=== PATIENT | male | born 1960 | race Caucasian/White ===

== ENCOUNTER 2017-12-12 04:12 | Emergency (ER) | payer SELFPAY ==
[2017-12-12] MEDS ORDERED: LISI20TA29 PO ×2 (04:21→07:13)
--- NOTE | 2017-12-12 04:31 | ER Report ---
History and Physical Time Seen By MD: 04:31 Hx. of Stated Complaint: woke up sob around 2am (HECTOR PAULINO MD) Time Seen By MD: 07:08 (EDITH ARAGON DO) HPI/ROS CHIEF COMPLAINT: shortness of breath HISTORY OF PRESENT ILLNESS: This is a 57 year old male. He is a tow truck operator, from [place]. Woke up tonight with episodes of shortness of breath. Episodes where he will wake up gasping for breath. Then will try to sleep again and the same happens. He has occasional sharp pains in chest, very short. Denies cough or fevers, although has had some congestion recently. Has no nausea or vomiting. Has no problems with bowels or urination. Has a history of CAD with multiple stents. No history of PE or DVT. No lung problems in the past. (HECTOR PAULINO MD) Allergies: Coded Allergies: No Known Drug Allergies (Unverified , 12/12/17) Home Meds Active Scripts Lisinopril (LISINOPRIL) 20 Mg Tablet, 20 MG PO QDAY for 7 Days, #7 TAB Prov:EDITH ARAGON DO 12/12/17 Reported Medications Lisinopril (LISINOPRIL) 20 Mg Tablet, 20 MG PO QDAY, TAB 12/12/17 Reviewed Nurses Notes: Yes (HECTOR PAULINO MD) Hx Substance Use Disorder: No Hx Alcohol Use: No (HECTOR PAULINO MD) Constitutional Vital Sign - Last 24 Hours 12/12/17 12/12/17 12/12/17 12/12/17 04:12 04:17 04:18 04:27 Temp 98.1 Pulse ??? 93 83 Resp 18 B/P (MAP) 172/100 (124) 172/100 Pulse Ox 93 96 O2 Delivery Room Air 12/12/17 12/12/17 12/12/17 12/12/17 04:42 04:57 05:06 05:12 Pulse 84 ??? 64 Resp 26 B/P (MAP) 165/104 (124) Pulse Ox 92 93 88 12/12/17 12/12/17 12/12/17 12/12/17 05:15 05:20 05:30 05:35 Pulse 77 81 Resp 27 14 B/P (MAP) 166/83 (110) 153/95 (114) Pulse Ox 92 91 12/12/17 12/12/17 12/12/17 12/12/17 05:45 05:50 06:00 06:17 Pulse 80 Resp 31 B/P (MAP) 150/115 (127) 146/100 (115) Pulse Ox 92 O2 Flow Rate 2.0 12/12/17 12/12/17 12/12/17 12/12/17 06:30 06:35 06:45 06:50 Pulse 75 78 Resp 15 24 B/P (MAP) 158/90 (112) 154/95 (114) Pulse Ox 95 94 12/12/17 12/12/17 07:00 07:05 Pulse 80 Resp 20 B/P (MAP) 159/94 (115) Pulse Ox 95 (ARAGON,EDITH S DO) Physical Exam General Appearance: The patient is alert. Has some anxiety and mild distress with symptoms. Eyes: Pupils are equal, round. No pallor, injection or icterus. ENT: Mucous membranes are moist. Normal oral mucosa. Posterior oropharynx is normal. Neck: Supple and non tender. Respiratory: Lungs are clear to auscultation. There are no retractions or accessory muscle use. Cardiovascular: Regular rate and rhythm. No murmurs, gallops or rubs. Normal capillary refill. No edema. Gastrointestinal: Abdomen is soft and non tender. Nondistended. Normal active bowel sounds. Neurological: Alert and oriented x3. Skin: Warm and dry. No rashes. Musculoskeletal: Extremities are nontender. No back pain. DIFFERENTIAL DIAGNOSIS: After history and physical exam, differential diagnosis was considered for shortness of breath including but not limited to pulmonary infectious process, pulmonary embolus and congestive heart failure. ([facility]) Medical Decision Making Data Points Result Diagram: 12/12/17 0454 12/12/17 0454 Laboratory Hematology Test 12/12/17 04:54 12/12/17 04:59 Red Blood Count 4.89 M/uL (4.00-5.60) Mean Corpuscular Volume 91.3 fL (80.0-96.0) Mean Corpuscular Hemoglobin 32.1 pg (26.0-33.0) Mean Corpuscular Hemoglobin Concent 35.1 g/dL (32.0-36.0) Red Cell Distribution Width 13.9 % (11.5-14.5) Mean Platelet Volume 9.6 fL (7.2-11.1) Neutrophils (%) (Auto) 65.5 % (39.4-72.5) Lymphocytes (%) (Auto) 22.3 % (17.6-49.6) Monocytes (%) (Auto) 7.3 % (4.1-12.4) Eosinophils (%) (Auto) 3.6 % (0.4-6.7) Basophils (%) (Auto) 1.3 % (0.3-1.4) Nucleated RBC Relative Count (auto) 0.0 /100WBC Neutrophils # (Auto) 6.8 K/uL (2.0-7.4) Lymphocytes # (Auto) 2.3 K/uL (1.3-3.6) Monocytes # (Auto) 0.8 K/uL (0.3-1.0) Eosinophils # (Auto) 0.4 K/uL (0.0-0.5) Basophils # (Auto) 0.1 K/uL (0.0-0.1) Nucleated RBC Absolute Count (auto) 0.00 K/uL D-Dimer Quantitative (PE/DVT) 0.65 ug/ml (0-0.50) Sodium Level 140 mmol/L (137-145) Potassium Level 4.0 mmol/L (3.5-5.0) Chloride Level 104 mmol/L (98-107) Carbon Dioxide Level 23 mmol/L (22-30) Blood Urea Nitrogen 17 mg/dl (9-21) Creatinine 1.00 mg/dl (0.66-1.25) Glomerular Filtration Rate Calc > 60.0 Random Glucose 119 mg/dl (75-110) Calcium Level 8.8 mg/dl (8.4-10.2) Total Bilirubin 0.4 mg/dl (0.2-1.3) Aspartate Amino Transf (AST/SGOT) 23 U/L (0-35) Alanine Aminotransferase (ALT/SGPT) 24 U/L (0-56) Alkaline Phosphatase 79 U/L (0-126) Troponin I < 0.012 ng/ml B-Type Natriuretic Peptide 183 pg/ml (0-100) Total Protein 7.5 g/dl (6.3-8.2) Albumin 4.0 g/dl (3.5-5.0) Urine Color Colorless Urine Clarity Clear Urine pH 5.0 pH (4.8-9.5) Urine Specific Adrian 1.003 Urine Protein Negative mg/dL (NEGATIVE) Urine Glucose (UA) Negative mg/dL (NEGATIVE) Urine Ketones Negative mg/dL (NEGATIVE) Urine Blood Small (NEGATIVE) Urine Nitrite Negative (NEGATIVE) Urine Bilirubin Negative (NEGATIVE) Urine Urobilinogen Negative mg/dL (0.2-1.9) Urine Leukocyte Esterase Negative (NEGATIVE) Urine RBC None /HPF (0-2/HPF) Urine WBC <1 /HPF (0-5/HPF) Urine Squamous Epithelial Cells None /LPF (</=FEW) Urine Bacteria Few /HPF (NONE-FEW) Urine Mucus None /HPF (NONE-FEW) Chemistry Test 12/12/17 04:54 12/12/17 04:59 White Blood Count 10.4 k/uL (4.5-11.0) Red Blood Count 4.89 M/uL (4.00-5.60) Hemoglobin 15.7 g/dL (14.0-18.0) Hematocrit 44.7 % (42.0-52.0) Mean Corpuscular Volume 91.3 fL (80.0-96.0) Mean Corpuscular Hemoglobin 32.1 pg (26.0-33.0) Mean Corpuscular Hemoglobin Concent 35.1 g/dL (32.0-36.0) Red Cell Distribution Width 13.9 % (11.5-14.5) Platelet Count 177 K/uL (150-450) Mean Platelet Volume 9.6 fL (7.2-11.1) Neutrophils (%) (Auto) 65.5 % (39.4-72.5) Lymphocytes (%) (Auto) 22.3 % (17.6-49.6) Monocytes (%) (Auto) 7.3 % (4.1-12.4) Eosinophils (%) (Auto) 3.6 % (0.4-6.7) Basophils (%) (Auto) 1.3 % (0.3-1.4) Nucleated RBC Relative Count (auto) 0.0 /100WBC Neutrophils # (Auto) 6.8 K/uL (2.0-7.4) Lymphocytes # (Auto) 2.3 K/uL (1.3-3.6) Monocytes # (Auto) 0.8 K/uL (0.3-1.0) Eosinophils # (Auto) 0.4 K/uL (0.0-0.5) Basophils # (Auto) 0.1 K/uL (0.0-0.1) Nucleated RBC Absolute Count (auto) 0.00 K/uL D-Dimer Quantitative (PE/DVT) 0.65 ug/ml (0-0.50) Glomerular Filtration Rate Calc > 60.0 Calcium Level 8.8 mg/dl (8.4-10.2) Total Bilirubin 0.4 mg/dl (0.2-1.3) Aspartate Amino Transf (AST/SGOT) 23 U/L (0-35) Alanine Aminotransferase (ALT/SGPT) 24 U/L (0-56) Alkaline Phosphatase 79 U/L (0-126) Troponin I < 0.012 ng/ml B-Type Natriuretic Peptide 183 pg/ml (0-100) Total Protein 7.5 g/dl (6.3-8.2) Albumin 4.0 g/dl (3.5-5.0) Urine Color Colorless Urine Clarity Clear Urine pH 5.0 pH (4.8-9.5) Urine Specific Adrian 1.003 Urine Protein Negative mg/dL (NEGATIVE) Urine Glucose (UA) Negative mg/dL (NEGATIVE) Urine Ketones Negative mg/dL (NEGATIVE) Urine Blood Small (NEGATIVE) Urine Nitrite Negative (NEGATIVE) Urine Bilirubin Negative (NEGATIVE) Urine Urobilinogen Negative mg/dL (0.2-1.9) Urine Leukocyte Esterase Negative (NEGATIVE) Urine RBC None /HPF (0-2/HPF) Urine WBC <1 /HPF (0-5/HPF) Urine Squamous Epithelial Cells None /LPF (</=FEW) Urine Bacteria Few /HPF (NONE-FEW) Urine Mucus None /HPF (NONE-FEW) Coagulation Test 12/12/17 04:54 D-Dimer Quantitative (PE/DVT) 0.65 ug/ml Urinalysis Test 12/12/17 04:59 Urine Color Colorless Urine Clarity Clear Urine pH 5.0 pH (4.8-9.5) Urine Specific Adrian 1.003 Urine Protein Negative mg/dL (NEGATIVE) Urine Glucose (UA) Negative mg/dL (NEGATIVE) Urine Ketones Negative mg/dL (NEGATIVE) Urine Blood Small (NEGATIVE) Urine Nitrite Negative (NEGATIVE) Urine Bilirubin Negative (NEGATIVE) Urine Urobilinogen Negative mg/dL (0.2-1.9) Urine Leukocyte Esterase Negative (NEGATIVE) Urine RBC None /HPF (0-2/HPF) Urine WBC <1 /HPF (0-5/HPF) Urine Squamous Epithelial Cells None /LPF (</=FEW) Urine Bacteria Few /HPF (NONE-FEW) Urine Mucus None /HPF (NONE-FEW) (EDITH ARAGON DO) EKG/Imaging EKG Interpretation 12 lead EKG: Rhythm: normal sinus rhythm [place]: normal QRS: Poor R-wave progression ST segments: No ST elevation or depression noted, evidence of some strain pattern Imaging CHEST: Indication: Respiratory distress. Technique: Frontal and lateral views were obtained. Comparison: None. Skeletal and soft tissue structures: There are chronic degenerative changes in the spine. There is a fracture in the lateral aspect of the left seventh rib, of uncertain age. Additional clinical correlation is recommended. Heart and mediastinum: Within normal limits. Lung garcía: Well-expanded. No focal opacities are identified. There is no vascular congestion Pleural spaces: Unremarkable. Impression: No acute process is identified in the lung garcía. There is a fracture of the left seventh rib, of indeterminate age. Report Dictated By: Guillermo Alvarez MD at 12/12/2017 5:13 AM ([facility]) Imaging EXAMINATION: CT chest angiogram HISTORY: Short of breath TECHNIQUE: CT angiogram was obtained through the chest with intravenous contrast. Sagittal and coronal MPR and MIP coronal reformations were generated. 75 mL isovue 370 was injected. One of the following dose optimization techniques was utilized in the performance of this exam: automated exposure control; adjustment of the mA and/ or kV according to patient size; or use of iterative reconstruction technique. Specific details can be referenced in the facility's radiology CT exam operational policy. COMPARISON: None. FINDINGS: Lower neck: Normal. Heart / pericardium/aorta/great vessels: Coronary artery stents and coronary artery calcifications noted. Mediastinum: Normal. Lymph node assessment: Mildly enlarged right hilar lymph nodes measuring up to 1.5 cm, axial image 163. Pleura: Normal. Pulmonary arteries/pulmonary arterial vascular tree: Probable contrast admixture artifact within a left upper lobe subsegmental branch, image 149 axial. Otherwise normal pulmonary arterial vasculature without embolus identified. Lungs: Calcified left lower lobe pulmonary nodule, image 73. Mild emphysema. Upper abdomen: Normal. Chest wall: Normal. 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 IMPRESSION: 1. Poor opacification of a left upper lobe pulmonary arterial subsegmental branch is favored to represent contrast admixture artifact. No definitive pulmonary embolus. 2. No acute finding. 3. Likely reactive mildly enlarged right hilar lymph nodes. 4. Coronary artery calcifications and stents. 5. 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 (EDITH ARAGON DO) ED Course/Re-evaluation Clinical Indication for ER IV: Hydration, IV Access (HECTOR PAULINO MD) ED Course I assumed care of the patient at [address] Paulino. CTA showed no acute PE or infectious etiology. I supplied the patient with a script for Lisinopril QD and he was given a dose prior to discharge. Patient is commuting to [place] which should improve dyspnea if etiology is altitude affected. Patient voiced understanding of plan and was maintaining oxygen saturations prior to discharge. Decision to Disposition Date: Dec 12, 2017 Decision to Disposition Time: 07:14 (EDITH ARAGON DO) Depart Departure Latest Vital Signs Vital Signs Date Time Temp Pulse Resp B/P (MAP) Pulse Ox O2 Delivery O2 Flow Rate FiO2 12/12/17 07:05 80 20 95 12/12/17 07:00 159/94 (115) 12/12/17 06:17 2.0 12/12/17 04:18 98.1 Room Air (EDITH ARAGON DO) Impression: Primary Impression: Dyspnea Condition: Improved Disposition: HOME OR SELF-CARE New Scripts Lisinopril (LISINOPRIL) 20 Mg Tablet 20 MG PO QDAY for 7 Days, #7 TAB Prov: EDITH ARAGON DO 12/12/17 Patient Instructions: Dyspnea (ED), Lisinopril (By mouth) Additional Instructions: Please take one tab or 20 mg of Lisinopril daily for 7 days until you are able to obtain a refill. Please return promptly with worsening shortness of breath, fevers, coughs, skin color changes HECTOR PAULINO MD Dec 12, 2017 04:31 EDITH ARAGON DO Dec 12, 2017 07:09
--- NOTE | 2017-12-12 04:52 | EKG ---
FACILITY: [facility] [place] PATIENT NAME: LEA ALAN : [id number] MR: [id number] V: [id number] EXAM DATE: ORDERING PHYSICIAN: HECTOR ALCANTAR TECHNOLOGIST: JULIETA Test Reason : SOB Blood Pressure : / mmHG Vent. Rate : 085 BPM Atrial Rate : 085 BPM P-R Int : 176 ms QRS Dur : 118 ms QT Int : 396 ms P-R-T Axes : 066 056 058 degrees QTc Int : 471 ms Normal sinus rhythm with sinus arrhythmia Nonspecific intraventricular conduction delay Borderline ECG No previous ECGs available Confirmed by MICAELA JAMES ([id number]) on 12/13/2017 2:48:09 PM Referred By: Confirmed By:MICAELA JAMES
[2017-12-12 05:01] LABS: PLATELET COUNT, AUTOMATED 177 K/uL (150-450)
--- NOTE | 2017-12-12 05:22 | RADIOLOGY IMAGING REPORT ---
FACILITY: [facility] PATIENT NAME: John Doe : 1960 MR: [id number] V: [id number] EXAM DATE: ORDERING PHYSICIAN: HECTOR ALCANTAR TECHNOLOGIST: [place] [facility] [place] John Doe : 1960 Visit/Account:[id number] Date of Sevice: 12/12/2017 CHEST: Indication: Respiratory distress. Technique: Frontal and lateral views were obtained. Comparison: None. Skeletal and soft tissue structures: There are chronic degenerative changes in the spine. There is a fracture in the lateral aspect of the left seventh rib, of uncertain age. Additional clinical correla tion is recommended. Heart and mediastinum: Within normal limits. Lung garcía: Well-expanded. No focal opacities are identified. There is no vascular congestion Pleural spaces: Unremarkable. Impression: No acute process is identified in the lung garcía. There is a fracture of the left sevent h rib, of indeterminate age. Report Dictated By: Guillermo Alvarez MD at 12/12/2017 5:13 AM Report E-Signed By: Guillermo Alvarez MD at 12/12/2017 5:17 AM WSN:[id number]
[2017-12-12] MEDS ORDERED: IOPAMIDOL 76% 75 ML INFUS BTL 75 ML ONE (05:57)
[2017-12-12] MEDS ORDERED: NS 0.9% 25 ML BAG 50 ML ONE (05:58)
[2017-12-12 07:00] VITALS: BP 159/94
--- NOTE | 2017-12-12 07:05 | RADIOLOGY IMAGING REPORT ---
FACILITY: [facility] PATIENT NAME: John Doe : 1960 MR: [id number] V: [id number] EXAM DATE: ORDERING PHYSICIAN: HECTOR ALCANTAR TECHNOLOGIST: Location: [facility] Patient: John Doe : 1960 Visit/Account:[id number] Date of Sevice: 12/12/2017 EXAMINATION: CT chest angiogram HISTORY: Short of breath TECHNIQUE: CT angiogram was obtained through the chest with intravenous contrast. Sagittal and cor onal MPR and MIP coronal reformations were generated. 75 mL isovue 370 was injected. One of the following dose optimization techniques was utilized in the performance of this exam: autom ated exposure control; adjustment of the mA and/or kV according to patient size; or use of iterative reconstruction technique. Specific details can be referenced in the facility's radiology CT exam ope rational policy. COMPARISON: None. FINDINGS: Lower neck: Normal. Heart / pericardium/aorta/great vessels: Coronary artery stents and coronary artery calcifications n oted. Mediastinum: Normal. Lymph node assessment: Mildly enlarged right hilar lymph nodes measuring up to 1.5 cm, axial image 16 3. Pleura: Normal. Pulmonary arteries/pulmonary arterial vascular tree: Probable contrast admixture artifact within a le ft upper lobe subsegmental branch, image 149 axial. Otherwise normal pulmonary arterial vasculature w ithout embolus identified. Lungs: Calcified left lower lobe pulmonary nodule, image 73. Mild emphysema. Upper abdomen: Normal. Chest wall: Normal. 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 IMPRESSION: 1. Poor opacification of a left upper lobe pulmonary arterial subsegmental branch is favored to repre sent contrast admixture artifact. No definitive pulmonary embolus. 2. No acute finding. 3. Likely reactive mildly enlarged right hilar lymph nodes. 4. Coronary artery calcifications and stents. 5. 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 Report Dictated By: Benedicto Taylor MD at 12/12/2017 6:50 AM Report E-Signed By: Benedicto Taylor MD at 12/12/2017 7:02 AM WSN:[id number]
[2017-12-12] MEDS ORDERED: LISINOPRIL 20 MG TAB PO ONE (07:20)
== END 2017-12-12 07:28 | disposition home or self-care (01) ==
LOC: ER 04:30
DX: R06.02 Shortness of breath (principal)
CPT/HCPCS: 71046; 71275; 81001; 83880; 84484; 85025; 85379; 93005; 99284; Q9967; 82040; 82247; 82310; 82374; 82435; 82565; 82947; 84075; 84132; 84155; 84295; 84450; 84460; 84520